=== PATIENT | female | born 1985 | race Caucasian/White ===

== ENCOUNTER → 2016-12-04 | Outpatient (CLI) | payer OTHER ==
--- NOTE | 2016-12-04 14:25 | XR ---
EXAMINATION TYPE: XR KUB DATE OF EXAM: 12/04/2016 11:34 AM COMPARISON: NONE HISTORY: 30-year-old female bilateral kidney stones and pain FINDINGS: Supine imaging limited for assessment of free air. There is mild overall stool burden. There is a 6 m m calcification seen in the left mid abdomen. Bilateral pelvic phleboliths are noted. IMPRESSION: 6 mm left-sided renal calculus. Phleboliths in the pelvis. A small distal ureteral calculus would be difficult to exclude particularly on the right. Correlate with patient's symptoms.
== END | disposition home or self-care (01) ==
LOC: RADXRMAIN 10:38
PROVIDERS: ATTEND Physician Assistant
DX: N20.0 Calculus of kidney (principal); I87.8 Other specified disorders of veins
CPT/HCPCS: 74000; 81025

== ENCOUNTER → 2016-12-13 | Outpatient (CLI) | payer OTHER ==
[2016-12-13 13:36] LABS: Follicle Stimulating Hormone 5.7 mIU/mL; Prolactin 12.4 ng/mL (3.0-18.6)
== END | disposition home or self-care (01) ==
LOC: LABWHC1 12:16
PROVIDERS: ATTEND Obstetrics & Gynecology
DX: N92.6 Irregular menstruation, unspecified (principal)
CPT/HCPCS: 36415; 82670; 83001; 83002; 84146; 84402

== ENCOUNTER → 2017-02-20 | Outpatient (CLI) | payer OTHER | END | disposition home or self-care (01) | LOC: LABWHC1 16:16 | PROVIDERS: ATTEND Obstetrics & Gynecology | DX: N91.2 Amenorrhea, unspecified (principal) | CPT/HCPCS: 36415; 84702 ==

== ENCOUNTER → 2017-03-12 | Outpatient (CLI) | payer OTHER ==
--- NOTE | 2017-03-12 12:39 | CT ---
EXAMINATION TYPE: CT abdomen pelvis wo con DATE OF EXAM: 03/12/2017 12:26 PM COMPARISON: Abdomen same date HISTORY: Right sided flank pain CT DLP: 1108 mGycm Automated exposure control for dose reduction was used. TECHNIQUE: Helical acquisition of images from the lung bases through the pelvis. FINDINGS: LUNG BASES: No significant abnormality is appreciated. AORTA: No significant abnormality is appreciated. LIVER/GB: Liver shows low attenuation likely due to fatty infiltration. The liver is enlarged. Gallbl adder is normal. PANCREAS: No significant abnormality is seen. SPLEEN: No significant abnormality is seen. ADRENALS: No significant abnormality is seen. KIDNEYS: Bilateral punctate calculi are present within the collecting systems which are nonobstructiv e. There are 4 on the right and 7 on the left all measuring only approximately 2 to 3 mm in size. Kid neys are morphologically normal given the limits of the noncontrast exam. There is no evident uretera l calculus. REPRODUCTIVE ORGANS: No significant abnormality is seen. URINARY BLADDER: No significant abnormality is seen. BOWEL: Metallic densities present at the level of the cecum may be indicative of post appendectomy c hange, no secondary signs of appendicitis FREE AIR: No Free Air is visible. ASCITES: None visible. PELVIC ADENOPATHY: None visualized. Small umbilical hernia contains fat. OSSEOUS STRUCTURES: Degenerative disc disease present, loss of disc height L5-S1. IMPRESSION: BILATERAL NONOBSTRUCTIVE NEPHROLITHIASIS. HEPATOMEGALY, PROBABLE FATTY INFILTRATION OF THE LIVER. COR RELATE FOR POST APPENDECTOMY CHANGE. ADDITIONAL FINDINGS ABOVE.
== END | disposition home or self-care (01) ==
LOC: RADCTMAIN 12:09
PROVIDERS: ATTEND Urology
DX: N20.0 Calculus of kidney (principal); R16.0 Hepatomegaly, not elsewhere classified
CPT/HCPCS: 74176

== ENCOUNTER → 2017-03-12 | Outpatient (CLI) | payer OTHER ==
--- NOTE | 2017-03-12 11:08 | XR ---
EXAMINATION TYPE: XR KUB DATE OF EXAM: 03/12/2017 10:59 AM HISTORY: Pain Comparison: 12/04/2016 Single KUB is submitted for interpretation. Findings: Right renal calculi: None Visualized. Right ureteral calculi: None Visualized. Left renal calculi: Previously noted left renal calculus is not well visualized at this time. Left ureteral calculi: None Visualized. Pelvic calcifications: Stable pelvic phleboliths noted. Bowel gas pattern is unremarkable. No free air. No mass effects. IMPRESSION: 1. Previously noted left renal calculus is not well visualized at this time.
== END | disposition home or self-care (01) ==
LOC: RADXRMAIN 10:27
PROVIDERS: ATTEND Urology
DX: N20.0 Calculus of kidney (principal)
CPT/HCPCS: 74000; 74176

== ENCOUNTER → 2017-05-21 | Outpatient (CLI) | payer OTHER | END | disposition home or self-care (01) | LOC: LABWHC1 13:34 | PROVIDERS: ATTEND Internal Medicine Endocrinology, Diabetes & Metabolism | DX: Z53.9 Procedure and treatment not carried out, unspecified reason (principal) ==

== ENCOUNTER 2017-06-12 16:06 | Emergency (ER) | payer OTHER ==
[2017-06-12 16:33] VITALS: PULSE 84; TEMP 98
[2017-06-12 17:20] LABS: Basophils # (A) 0.1 k/uL (0-0.2); Basophils % (A) 1 %; CH 28.8; CHCM 33.3; Eosinophils # (A) 0.4 k/uL (0-0.7); Eosinophils % (A) 3 %; HCT 42.4 % (34.0-46.0); HGB 14.4 gm/dL (11.4-16.0); Luc # (Auto) 0.24; Luc % (Auto) 2; Lymphocytes # (A) 3.3 k/uL (1.0-4.8); Lymphocytes % (A) 23 %; MCH 29.5 pg (25.0-35.0); MCHC 33.9 g/dL (31.0-37.0); Mean Platelet Volume 8.1; Monocytes # (A) 0.6 k/uL (0-1.0); Monocytes % (A) 4 %; Neutrophils # (A) 9.7 k/uL (1.3-7.7); Neutrophils % (A) 68 %; RBC 4.88 m/uL (3.80-5.40); RDW 13.7 % (11.5-15.5); WBC 14.2 k/uL (3.8-10.6); WBC (Perox) 14.08
[2017-06-12 17:21] LABS: Appearance,Urine Clear (Clear); Bilirubin,Urine Negative (Negative); Glucose,Urine (UA) Negative (Negative); Ketones,Urine Negative (Negative); Leukocyte Esterase,Urine Negative (Negative); Nitrite,Urine Negative (Negative); Protein,Urine Negative (Negative); Specific Gravity,Urine 1.016 (1.001-1.035); UA Billing (MACRO vs. MICRO) CHEM; Urobilinogen,Urine <2.0 mg/dL (<2.0)
--- NOTE | 2017-06-12 17:28 | ED ---
Abdominal Pain HPI - General Chief Complaint: Abdominal Pain Stated Complaint: Abd Pain- Time Seen by Provider: 06/12/17 16:35 Source: patient, RN notes reviewed Mode of arrival: ambulatory Limitations: no limitations - History of Present Illness Initial Comments: This a 31-year-old female presents emergency Department chief complaint abdominal pain. Patient is concerned that she recently she is . Patient is A0. Patient states that her [employer] is Dr. Blas. Patient has no vaginal bleeding or vaginal discharge. She complains of lower abdominal cramping. Denies any flank pain no dysuria no hematuria. Patient states that the pain made her concerned and brought her to emergency department. - Related Data Home Medications Medication Instructions Recorded Confirmed Levothyroxine Sodium [Synthroid] 112 mcg PO DAILY 06/12/17 06/12/17 Plexus Otc 1 dose PO DAILY 06/12/17 06/12/17 Allergies Allergy/AdvReac Type Severity Reaction Status Date / Time Penicillins Allergy Severe Swelling Verified 06/12/17 16:51 corn [[place]] Allergy Mild Itching Verified 06/12/17 16:51 peanut Allergy Mild Itching Verified 06/12/17 16:51 soybean Allergy Mild Itching Verified 06/12/17 16:51 walnut Allergy Itching Verified 06/12/17 16:51 Review of Systems ROS Statement: Those systems with pertinent positive or pertinent negative responses have been documented in the HPI. ROS Other: All systems not noted in ROS Statement are negative. Past Medical History Past Medical History: Thyroid Disorder Additional Past Medical History / Comment(s): kidney stones in past History of Any Multi-Drug Resistant Organisms: None Reported Past Surgical History: Appendectomy, Tonsillectomy Additional Past Surgical History / Comment(s): exploratory laparotomy of ovary Past Anesthesia/Blood Transfusion Reactions: No Reported Reaction Past Psychological History: Anxiety Smoking Status: Former smoker Past Alcohol Use History: None Reported Past Drug Use History: None Reported - Past Family History Mother Family Medical History: No Reported History General Exam Limitations: no limitations General appearance: alert, in no apparent distress Respiratory exam: Present: normal lung sounds bilaterally. Absent: respiratory distress, wheezes, rales, rhonchi, stridor Cardiovascular Exam: Present: regular rate, normal rhythm, normal heart sounds. Absent: systolic murmur, diastolic murmur, rubs, gallop, clicks GI/Abdominal exam: Present: soft, normal bowel sounds. Absent: distended, tenderness, guarding, rebound, rigid Back exam: Absent: CVA tenderness (R), CVA tenderness (L) Skin exam: Present: warm, dry, intact, normal color. Absent: rash Course Vital Signs 06/12/17 16:31 Temperature 98.0 F Pulse Rate 84 Respiratory 18 Rate Blood Pressure 156/74 O2 Sat by Pulse 98 Oximetry Medical Decision Making - Medical Decision Making 31-year-old female presented emergency from for abdominal pain . Patient has early with hCG of 96. Patient has no vaginal bleeding ultrasound does not show any abnormality at this time. Patient has early will follow for further care. - Lab Data Result diagrams: 06/12/17 17:05 06/12/17 17:05 Lab Results 06/12/17 06/12/17 06/12/17 Range/Units 17:05 17:05 17:05 WBC 14.2 H (3.8-10.6) k/uL RBC 4.88 (3.80-5.40) m/uL Hgb 14.4 (11.4-16.0) gm/dL Hct 42.4 (34.0-46.0) % MCV 87.0 (80.0-100.0) fL MCH 29.5 (25.0-35.0) pg MCHC 33.9 (31.0-37.0) g/dL RDW 13.7 (11.5-15.5) % Plt Count 247 (150-450) k/uL Neutrophils % 68 % Lymphocytes % 23 % Monocytes % 4 % Eosinophils % 3 % Basophils % 1 % Neutrophils # 9.7 H (1.3-7.7) k/uL Lymphocytes # 3.3 (1.0-4.8) k/uL Monocytes # 0.6 (0-1.0) k/uL Eosinophils # 0.4 (0-0.7) k/uL Basophils # 0.1 (0-0.2) k/uL Sodium 137 (137-145) mmol/L Potassium 4.2 (3.5-5.1) mmol/L Chloride 105 (98-107) mmol/L Carbon Dioxide 24 (22-30) mmol/L Anion Gap 8 mmol/L BUN 15 (7-17) mg/dL Creatinine 0.73 (0.52-1.04) mg/dL Est GFR (MDRD) Af Amer >60 (>60 ml/min/1.73 sqM) Est GFR (MDRD) Non-Af >60 (>60 ml/min/1.73 sqM) Glucose 75 (74-99) mg/dL Calcium 9.3 (8.4-10.2) mg/dL HCG, Quant 96.9 mIU/mL Urine Color Urine Appearance (Clear) Urine pH (5.0-8.0) Ur Specific [place] (1.001-1.035) Urine Protein (Negative) Urine Glucose (UA) (Negative) Urine Ketones (Negative) Urine Blood (Negative) Urine Nitrite (Negative) Urine Bilirubin (Negative) Urine Urobilinogen (<2.0) mg/dL Ur Leukocyte Esterase (Negative) Blood Type B Positive Blood Type Recheck No 06/12/17 Range/Units 17:05 WBC (3.8-10.6) k/uL RBC (3.80-5.40) m/uL Hgb (11.4-16.0) gm/dL Hct (34.0-46.0) % MCV (80.0-100.0) fL MCH (25.0-35.0) pg MCHC (31.0-37.0) g/dL RDW (11.5-15.5) % Plt Count (150-450) k/uL Neutrophils % % Lymphocytes % % Monocytes % % Eosinophils % % Basophils % % Neutrophils # (1.3-7.7) k/uL Lymphocytes # (1.0-4.8) k/uL Monocytes # (0-1.0) k/uL Eosinophils # (0-0.7) k/uL Basophils # (0-0.2) k/uL Sodium (137-145) mmol/L Potassium (3.5-5.1) mmol/L Chloride (98-107) mmol/L Carbon Dioxide (22-30) mmol/L Anion Gap mmol/L BUN (7-17) mg/dL Creatinine (0.52-1.04) mg/dL Est GFR (MDRD) Af Amer (>60 ml/min/1.73 sqM) Est GFR (MDRD) Non-Af (>60 ml/min/1.73 sqM) Glucose (74-99) mg/dL Calcium (8.4-10.2) mg/dL HCG, Quant mIU/mL Urine Color Yellow Urine Appearance Clear (Clear) Urine pH 5.0 (5.0-8.0) Ur Specific [place] 1.016 (1.001-1.035) Urine Protein Negative (Negative) Urine Glucose (UA) Negative (Negative) Urine Ketones Negative (Negative) Urine Blood Negative (Negative) Urine Nitrite Negative (Negative) Urine Bilirubin Negative (Negative) Urine Urobilinogen <2.0 (<2.0) mg/dL Ur Leukocyte Esterase Negative (Negative) Blood Type Blood Type Recheck Disposition Clinical Impression: Disposition: HOME SELF-CARE Condition: Stable Instructions: (ED) Additional Instructions: Please return to the Emergency Department if symptoms worsen or any other concerns. Referrals: None,Stated [Primary Care Provider] - 1-2 days Time of Disposition: 19:00
[2017-06-12 17:29] LABS: Anion Gap 8 mmol/L; Blood Urea Nitrogen 15 mg/dL (7-17); Calcium 9.3 mg/dL (8.4-10.2); Carbon Dioxide 24 mmol/L (22-30); Chloride 105 mmol/L (98-107); Glucose 75 mg/dL (74-99); Non-African American GFR(MDRD) >60 (>60 ml/min/1.73 sqM); Potassium 4.2 mmol/L (3.5-5.1); Sodium 137 mmol/L (137-145)
[2017-06-12 17:46] LABS: HCG,Quantitative Serum 96.9 mIU/mL
--- NOTE | 2017-06-12 18:47 | US ---
EXAMINATION TYPE: US OB transvag DATE OF EXAM: 06/12/2017 COMPARISON: NONE CLINICAL HISTORY: Pain. No beta hCG available at the time of interpretation. EXAM PERFORMED: Transvaginal (TV) EXAM MEASUREMENTS: GESTATIONAL AGE / DATING Physician Established: Not established Dates by LMP: Unknown Dates by First Scan: This is first scan MATERNAL ANATOMY Uterus: 7.1 x 4.2 x 5.3 cm Right Ovary: 2.2 x 1.4 x 2.0 cm Left Ovary: 2.3 x 1.0 x 1.8 cm Post CDS / Adnexa: wnl Presence of free fluid: no Presence of corpus luteal cyst: no Endometrium: 1.5 cm. GESTATION / SURVEY Date of LMP: Unknown Beta HcG (if available): Not available IUP not visualized at this time. Uterus heterogenous hypoechoic areas seen largest measuring 1.0 x 0.9 x 1.0 cm. Likely representing intramural leiomyomas Hypoechoic area seen left ovary measuring 1.7 x 1.4 x 1.4cm. Most likely representing a complex dominant follicle, possibly a corpus luteal cyst IMPRESSION: Thickened endometrium with no current evidence of intrauterine . Correlation with repeat short-term serial serum beta hCGs and pelvic ultrasound in 5-7 days is recommended. Differential of this time includes early , spontaneous , and ectopic . MTDD
[2017-06-12 19:15] VITALS: BP 112/64; RESP 16
== END 2017-06-12 19:25 | disposition home or self-care (01) ==
LOC: EC 16:06
DX: O99.89 Other specified diseases and conditions complicating pregnancy, childbirth and the puerperium (principal); R10.9 Unspecified abdominal pain; O99.280 Endocrine, nutritional and metabolic diseases complicating pregnancy, unspecified trimester; E07.9 Disorder of thyroid, unspecified; Z3A.00 Weeks of gestation of pregnancy not specified; Z79.899 Other long term (current) drug therapy; Z88.0 Allergy status to penicillin; Z91.010 Allergy to peanuts; Z91.018 Allergy to other foods
CPT/HCPCS: 36415; 76801; 76817; 80048; 81003; 84702; 85025; 86900; 86901; 99284

== ENCOUNTER → 2017-06-22 | Outpatient (CLI) | payer OTHER | END | disposition home or self-care (01) | LOC: LABWHC1 11:03 | PROVIDERS: ATTEND Obstetrics & Gynecology | DX: Z34.80 Encounter for supervision of other normal pregnancy, unspecified trimester (principal); Z3A.00 Weeks of gestation of pregnancy not specified | CPT/HCPCS: 36415; 84702 ==

== ENCOUNTER → 2017-07-02 | Outpatient (CLI) | payer OTHER | END | disposition home or self-care (01) | LOC: LABWHC1 16:36 | PROVIDERS: ATTEND Obstetrics & Gynecology | DX: O03.9 Complete or unspecified spontaneous abortion without complication (principal) | CPT/HCPCS: 36415; 84702 ==

== ENCOUNTER → 2017-07-25 | Outpatient (CLI) | payer OTHER ==
[2017-07-25 11:48] LABS: CH 28.5; CHCM 32.8; HCT 42.7 % (34.0-46.0); HDW 2.26; HGB 14.3 gm/dL (11.4-16.0); MCH 29.4 pg (25.0-35.0); MCHC 33.6 g/dL (31.0-37.0); MCV 87.5 fL (80.0-100.0); RBC 4.87 m/uL (3.80-5.40); RDW 13.2 % (11.5-15.5); WBC 10.9 k/uL (3.8-10.6)
[2017-07-25 12:14] LABS: ALT 44 U/L (9-52); AST 24 U/L (14-36); Alkaline Phosphatase 87 U/L (38-126); Anion Gap 11 mmol/L; Blood Urea Nitrogen 15 mg/dL (7-17); C Reactive Protein 6.1 mg/L (<10.0); Calcium 9.4 mg/dL (8.4-10.2); Carbon Dioxide 26 mmol/L (22-30); Chloride 103 mmol/L (98-107); Cholesterol 231 mg/dL (<200); Glucose 86 mg/dL (74-99); HDL Cholesterol 53 mg/dL (40-60); Magnesium 1.9 mg/dL (1.6-2.3); Non-African American GFR(MDRD) >60 (>60 ml/min/1.73 sqM); Potassium 4.7 mmol/L (3.5-5.1); Sodium 140 mmol/L (137-145); Total Bilirubin 0.2 mg/dL (0.2-1.3); Total Protein 7.3 g/dL (6.3-8.2)
[2017-07-25 12:15] LABS: Rheumatoid Factor, Qnt <9 IU/mL (<12)
[2017-07-25 18:14] LABS: ANA w/Reflex to Titer NEGATIVE (NEGATIVE); Cyclic Citrull Pep IgG Unit <0.5 U/mL; Cyclic Citrullinated Pep IgG NEGATIVE (NEGATIVE)
== END | disposition home or self-care (01) ==
LOC: LABWHC1 10:56
PROVIDERS: ATTEND Family Medicine
DX: M25.569 Pain in unspecified knee (principal); E66.9 Obesity, unspecified; Z68.35 Body mass index [BMI] 35.0-35.9, adult
CPT/HCPCS: 36415; 80053; 80061; 82306; 83735; 85027; 86038; 86140; 86200; 86431

== ENCOUNTER → 2018-06-11 | Outpatient (CLI) | payer OTHER ==
[2018-06-11 13:57] LABS: T4, Free (Free Thyroxine) 0.9 ng/dL (0.78-2.19)
== END | disposition home or self-care (01) ==
LOC: LABWHC1 12:37
PROVIDERS: ATTEND Internal Medicine Endocrinology, Diabetes & Metabolism
DX: E03.8 Other specified hypothyroidism (principal); E55.9 Vitamin D deficiency, unspecified
CPT/HCPCS: 36415; 82306; 84439; 84443

== ENCOUNTER 2018-08-31 08:51 | Emergency (ER) | payer OTHER ==
[2018-08-31 08:58] VITALS: RESP 18; TEMP 97.8
[2018-08-31] MEDS ORDERED: SODIUM CHLORIDE 0.9% 1,000 ML IV STA (09:14)
[2018-08-31] MEDS ORDERED: MORPHINE SULFATE 4 MG/ML SYRINGE IV STA (09:14)
[2018-08-31] MEDS ORDERED: KETOROLAC 30 MG/ML 1 ML VIAL IVP STA (09:14)
--- NOTE | 2018-08-31 09:17 | ED ---
Abdominal Pain HPI - General Chief Complaint: Abdominal Pain Stated Complaint: Kidney pain/vomiting Time Seen by Provider: 08/31/18 09:02 Source: patient, RN notes reviewed, old records reviewed Mode of arrival: ambulatory Limitations: no limitations - History of Present Illness Initial Comments: Patient is a 32-year-old female presents emergency department today with chief complaint of onset of right-sided flank pain this morning. She said history of kidney stones in the past and her pain feels similar to her previous kidney stones. Patient reports the pain him to start with dysuria this morning. Been progressively up to the right flank. Patient has had episodes of dry heaving. Patient reports she also had a recent right foot surgery, and was placed on Bactrim yesterday by her orthopedic surgeon. Patient his taken a few doses of the antibiotic at this time. She relates no fevers or chills. She states that she feels generally ill and the pain comes in waves. - Related Data Home Medications Medication Instructions Recorded Confirmed Levothyroxine Sodium [Synthroid] 112 mcg PO DAILY 06/12/17 06/12/17 Plexus Otc 1 dose PO DAILY 06/12/17 06/12/17 Previous Rx's Medication Instructions Recorded HYDROcodone/APAP 5-325MG [[place] 1 tab PO Q6HR PRN #10 tab 08/31/18 5-325] Ketorolac [Toradol] 10 mg PO TID #20 tab 08/31/18 Ondansetron Odt [Zofran Odt] 4 mg PO Q8HR PRN #20 tab 08/31/18 Tamsulosin [Flomax] 0.4 mg PO DAILY #7 cap 08/31/18 Allergies Allergy/AdvReac Type Severity Reaction Status Date / Time Penicillins Allergy Severe Swelling Verified 08/31/18 08:54 corn [[place]] Allergy Mild Itching Verified 08/31/18 08:54 peanut Allergy Mild Itching Verified 08/31/18 08:54 soybean Allergy Mild Itching Verified 08/31/18 08:54 walnut Allergy Itching Verified 08/31/18 08:54 Review of Systems ROS Statement: Those systems with pertinent positive or pertinent negative responses have been documented in the HPI. ROS Other: All systems not noted in ROS Statement are negative. Past Medical History Past Medical History: Thyroid Disorder Additional Past Medical History / Comment(s): kidney stones in past History of Any Multi-Drug Resistant Organisms: None Reported Past Surgical History: Appendectomy, Section, Tonsillectomy Additional Past Surgical History / Comment(s): exploratory laparotomy of ovary, release of plantar facitis Past Anesthesia/Blood Transfusion Reactions: No Reported Reaction Past Psychological History: No Psychological Hx Reported Smoking Status: Current every day smoker Past Alcohol Use History: None Reported Past Drug Use History: Marijuana - Past Family History Mother Family Medical History: No Reported History General Exam - General Exam Comments Initial Comments: This is a 32-year-old female. Alert and oriented. Patient appears in moderate acute discomfort. Limitations: no limitations General appearance: alert, in no apparent distress Head exam: Present: atraumatic, normocephalic, normal inspection Eye exam: Present: normal appearance, PERRL, EOMI. Absent: scleral icterus, conjunctival injection, periorbital swelling ENT exam: Present: normal exam, normal oropharynx, mucous membranes moist Neck exam: Present: normal inspection. Absent: tenderness, meningismus, lymphadenopathy Respiratory exam: Present: normal lung sounds bilaterally. Absent: respiratory distress, wheezes, rales, rhonchi, stridor Cardiovascular Exam: Present: regular rate, normal rhythm, normal heart sounds. Absent: systolic murmur, diastolic murmur, rubs, gallop, clicks GI/Abdominal exam: Present: soft, normal bowel sounds. Absent: distended, tenderness, guarding, rebound, rigid Extremities exam: Present: normal inspection, full ROM, normal capillary refill. Absent: tenderness, pedal edema, joint swelling, calf tenderness Back exam: Present: normal inspection Neurological exam: Present: alert, oriented X3, CN II-XII intact Psychiatric exam: Present: normal affect, normal mood Course Vital Signs 08/31/18 08:54 Temperature 97.8 F Pulse Rate 83 Respiratory 18 Rate Blood Pressure 147/92 O2 Sat by Pulse 99 Oximetry Medical Decision Making - Medical Decision Making 32-year-old female presents referred in today with chief complaint of onset of right-sided flank pain. Patient appears to be in distress upon emergency department arrival. Concern for passing kidney stone. Said kidney since the past. Patient's laboratory was reviewed and unremarkable. She did recently start Bactrim for a right foot infection postsurgical. This wound site appears well. No signs of redness or drainage. Patient has some right CVA tenderness. Was given IV fluids and pain medication. She was revived afterwards and said the pain is resolved. CT without contrast was completed. There is evidence of right-sided hydronephrosis likely old recently passed stone. Evidence of multiple stones within the gallbladder on my visualization of the CT. At this time Patient will be discharged with Flomax. Medication and Toradol and nausea medication. Discussed that she would continue her Bactrim already with the infection of the foot. Patient agrees to treatment plan will comply. Return parameters were discussed. - Lab Data Result diagrams: 08/31/18 09:47 08/31/18 09:47 Lab Results 08/31/18 08/31/18 08/31/18 Range/Units 09:47 09:47 09:47 WBC 10.8 H (3.8-10.6) k/uL RBC 5.14 (3.80-5.40) m/uL Hgb 14.8 (11.4-16.0) gm/dL Hct 44.8 (34.0-46.0) % MCV 87.2 (80.0-100.0) fL MCH 28.7 (25.0-35.0) pg MCHC 32.9 (31.0-37.0) g/dL RDW 13.5 (11.5-15.5) % Plt Count 255 (150-450) k/uL Neutrophils % 69 % Lymphocytes % 20 % Monocytes % 6 % Eosinophils % 3 % Basophils % 1 % Neutrophils # 7.5 (1.3-7.7) k/uL Lymphocytes # 2.2 (1.0-4.8) k/uL Monocytes # 0.6 (0-1.0) k/uL Eosinophils # 0.4 (0-0.7) k/uL Basophils # 0.1 (0-0.2) k/uL Sodium 141 (137-145) mmol/L Potassium 4.5 (3.5-5.1) mmol/L Chloride 107 (98-107) mmol/L Carbon Dioxide 23 (22-30) mmol/L Anion Gap 11 mmol/L BUN 20 H (7-17) mg/dL Creatinine 0.93 (0.52-1.04) mg/dL Est GFR (CKD-EPI)AfAm >90 (>60 ml/min/1.73 sqM) Est GFR (CKD-EPI)NonAf 82 (>60 ml/min/1.73 sqM) Glucose 94 (74-99) mg/dL Calcium 10.3 H (8.4-10.2) mg/dL Total Bilirubin 0.4 (0.2-1.3) mg/dL AST 20 (14-36) U/L ALT 24 (9-52) U/L Alkaline Phosphatase 111 (38-126) U/L Total Protein 8.2 (6.3-8.2) g/dL Albumin 4.6 (3.5-5.0) g/dL Amylase 54 (30-110) U/L Lipase 125 (23-300) U/L Urine Color Yellow Urine Appearance Clear (Clear) Urine pH 6.0 (5.0-8.0) Ur Specific [place] 1.022 (1.001-1.035) Urine Protein Trace H (Negative) Urine Glucose (UA) Negative (Negative) Urine Ketones Negative (Negative) Urine Blood Large H (Negative) Urine Nitrite Negative (Negative) Urine Bilirubin Negative (Negative) Urine Urobilinogen <2.0 (<2.0) mg/dL Ur Leukocyte Esterase Negative (Negative) Urine RBC >182 H (0-5) /hpf Urine WBC 2 (0-5) /hpf Ur Squamous Epith Cells 2 (0-4) /hpf Urine Bacteria Rare H (None) /hpf Urine Mucus Occasional H (None) /hpf Urine HCG, Qual (Not Detectd) 08/31/18 Range/Units 09:47 WBC (3.8-10.6) k/uL RBC (3.80-5.40) m/uL Hgb (11.4-16.0) gm/dL Hct (34.0-46.0) % MCV (80.0-100.0) fL MCH (25.0-35.0) pg MCHC (31.0-37.0) g/dL RDW (11.5-15.5) % Plt Count (150-450) k/uL Neutrophils % % Lymphocytes % % Monocytes % % Eosinophils % % Basophils % % Neutrophils # (1.3-7.7) k/uL Lymphocytes # (1.0-4.8) k/uL Monocytes # (0-1.0) k/uL Eosinophils # (0-0.7) k/uL Basophils # (0-0.2) k/uL Sodium (137-145) mmol/L Potassium (3.5-5.1) mmol/L Chloride (98-107) mmol/L Carbon Dioxide (22-30) mmol/L Anion Gap mmol/L BUN (7-17) mg/dL Creatinine (0.52-1.04) mg/dL Est GFR (CKD-EPI)AfAm (>60 ml/min/1.73 sqM) Est GFR (CKD-EPI)NonAf (>60 ml/min/1.73 sqM) Glucose (74-99) mg/dL Calcium (8.4-10.2) mg/dL Total Bilirubin (0.2-1.3) mg/dL AST (14-36) U/L ALT (9-52) U/L Alkaline Phosphatase (38-126) U/L Total Protein (6.3-8.2) g/dL Albumin (3.5-5.0) g/dL Amylase (30-110) U/L Lipase (23-300) U/L Urine Color Urine Appearance (Clear) Urine pH (5.0-8.0) Ur Specific [place] (1.001-1.035) Urine Protein (Negative) Urine Glucose (UA) (Negative) Urine Ketones (Negative) Urine Blood (Negative) Urine Nitrite (Negative) Urine Bilirubin (Negative) Urine Urobilinogen (<2.0) mg/dL Ur Leukocyte Esterase (Negative) Urine RBC (0-5) /hpf Urine WBC (0-5) /hpf Ur Squamous Epith Cells (0-4) /hpf Urine Bacteria (None) /hpf Urine Mucus (None) /hpf Urine HCG, Qual Not Detected (Not Detectd) - Radiology Data Radiology results: report reviewed Bilateral nonobstructing nephrolithiasis. Mild right-sided hydronephrosis without definite acute ureteral calculus. This may be secondary to a recently passed stone. Hepatomegaly. Colonic thickening correlate to exclude colitis. There is an umbilical hernia with fat with a 7.2 mm mouth. Disposition Clinical Impression: Ureteral calculus, right Disposition: HOME SELF-CARE Condition: Good Instructions: Ureteral Stones (ED) Additional Instructions: Patient advised to follow-up with primary care provider. Return to the emergency department if any alarming signs or symptoms occur. Take the medication as prescribed. Remain hydrated. Continue her antibiotic as previously prescribed. Prescriptions: HYDROcodone/APAP 5-325MG [[place] 5-325] 1 tab PO Q6HR PRN #10 tab PRN Reason: Pain Ketorolac [Toradol] 10 mg PO TID #20 tab Ondansetron Odt [Zofran Odt] 4 mg PO Q8HR PRN #20 tab PRN Reason: Nausea Tamsulosin [Flomax] 0.4 mg PO DAILY #7 cap Is patient prescribed a controlled substance at d/c from ED?: Yes When asked, does pt state using other controlled substances?: No If prescribed controlled substance>3 days was MAPS reviewed?: Yes If opioid is for acute pain is fill amount 7 days or less?: Yes If Rx opioid, was Start Talking consent form obtained?: Yes Referrals: Yoli Coyne MD [Primary Care Provider] - 1-2 days Taye Duran MD [STAFF PHYSICIAN] - 1-2 days Time of Disposition: 11:32
[2018-08-31] MEDS ORDERED: ONDANSETRON 4 MG/2 ML VIAL IVP STA (09:52)
[2018-08-31 10:08] LABS: Basophils # (A) 0.1 k/uL (0-0.2); Basophils % (A) 1 %; Eosinophils # (A) 0.4 k/uL (0-0.7); Eosinophils % (A) 3 %; HCT 44.8 % (34.0-46.0); HGB 14.8 gm/dL (11.4-16.0); Lymphocytes # (A) 2.2 k/uL (1.0-4.8); Lymphocytes % (A) 20 %; MCH 28.7 pg (25.0-35.0); MCHC 32.9 g/dL (31.0-37.0); MCV 87.2 fL (80.0-100.0); Mean Platelet Volume 8.1; Monocytes # (A) 0.6 k/uL (0-1.0); Monocytes % (A) 6 %; Neutrophils # (A) 7.5 k/uL (1.3-7.7); Neutrophils % (A) 69 %; Platelet Count 255 k/uL (150-450); RBC 5.14 m/uL (3.80-5.40); RDW 13.5 % (11.5-15.5); WBC 10.8 k/uL (3.8-10.6)
[2018-08-31 10:14] LABS: Appearance,Urine Clear (Clear); Bacteria,Urine Rare /hpf; Bilirubin,Urine Negative (Negative); Blood,Urine Large (Negative); Color,Urine Yellow; Glucose,Urine (UA) Negative (Negative); Ketones,Urine Negative (Negative); Leukocyte Esterase,Urine Negative (Negative); Mucus,Urine Occasional /hpf; Nitrite,Urine Negative (Negative); Protein,Urine Trace (Negative); RBC,Urine >182 /hpf (0-5); Specific Gravity,Urine 1.022 (1.001-1.035); Squamous Epithelial Cell,Urine 2 /hpf (0-4); Urobilinogen,Urine <2.0 mg/dL (<2.0); WBC,Urine 2 /hpf (0-5)
[2018-08-31 10:19] LABS: ALT 24 U/L (9-52); AST 20 U/L (14-36); Albumin 4.6 g/dL (3.5-5.0); Alkaline Phosphatase 111 U/L (38-126); Amylase 54 U/L (30-110); Anion Gap 11 mmol/L; Blood Urea Nitrogen 20 mg/dL (7-17); Calcium 10.3 mg/dL (8.4-10.2); Carbon Dioxide 23 mmol/L (22-30); Chloride 107 mmol/L (98-107); Glucose 94 mg/dL (74-99); Lipase 125 U/L (23-300); Potassium 4.5 mmol/L (3.5-5.1); Sodium 141 mmol/L (137-145); Total Bilirubin 0.4 mg/dL (0.2-1.3); Total Protein 8.2 g/dL (6.3-8.2)
--- NOTE | 2018-08-31 11:26 | CT ---
EXAMINATION TYPE: CT abdomen pelvis wo con DATE OF EXAM: 08/31/2018 COMPARISON: Previous study dated 03/12/2017 HISTORY: Abdominal pain, left side. History of renal stones CT DLP: 775.3 mGycm Automated exposure control for dose reduction was used. FINDINGS: Visualized portions of the lungs are clear. There is no pleural or pericardial fluid. The h eart is not enlarged. Within the abdomen, the liver is enlarged measuring 20 cm. The spleen and gallbladder are normal. Both adrenal glands are normal. There are bilateral nonobstructing calculi in the lower poles bilaterally. The largest on the right i s 3.1 mm. The largest on the left is in the upper pole anterior calyx and measures 2.7 mm. There are multiple smaller nonobstructing calculi. There is mild hydronephrosis on the right. There are multiple phleboliths within the pelvis bilateral ly. A definite ureteric calculus is not visualized. The calcifications appear unchanged from the prev ious study. Limited views of the pancreas are unremarkable. There is no significant retroperitoneal, iliac or inguinal adenopathy. The bladder is unremarkable. There is follicular change in the ovaries. The uterus is unremarkable. There is no significant diverticular change and there is no radiographic evidence of diverticulitis. The appendix is been removed. There is some thickening of the distal transverse and proximal descendi ng colons. Small bowel loops are normal. There is no free fluid and no free air. There is an umbilical hernia containing fat only with a 7.2 mm mouth. No bony lesion is seen. IMPRESSION: 1. BILATERAL NONOBSTRUCTING NEPHROLITHIASIS. 2. MILD RIGHT-SIDED HYDRONEPHROSIS WITHOUT DEFINITE URETERIC CALCULUS. THIS MAY BE SECONDARY TO A REC ENTLY PASSED STONE. 3. HEPATOMEGALY. 4. COLONIC THICKENING. PLEASE CORRELATE TO EXCLUDE COLITIS. 5. UMBILICAL HERNIA CONTAINING FAT ONLY WITH A 7.2 MM MOUTH.
[2018-08-31 11:35] VITALS: BP 117/80; PULSE 77
== END 2018-08-31 11:51 | disposition home or self-care (01) ==
LOC: EC 08:51
DX: N13.2 Hydronephrosis with renal and ureteral calculous obstruction (principal); K80.20 Calculus of gallbladder without cholecystitis without obstruction; E07.9 Disorder of thyroid, unspecified; F17.200 Nicotine dependence, unspecified, uncomplicated; Z90.49 Acquired absence of other specified parts of digestive tract; Z79.899 Other long term (current) drug therapy; Z88.0 Allergy status to penicillin; Z91.018 Allergy to other foods; Z91.010 Allergy to peanuts
CPT/HCPCS: 36415; 80053; 82150; 83690; 85025; 81001; 81025; 74176; 99284; 96374; 96375 ×2; 96361; J2270; J2405; J1885

== ENCOUNTER → 2019-05-30 | Outpatient (CLI) | payer OTHER ==
[2019-05-30 23:30] LABS: T4, Free (Free Thyroxine) 1.2 ng/dL (0.80-1.80)
== END | disposition home or self-care (01) ==
LOC: LABWHC1 16:01
PROVIDERS: ATTEND Internal Medicine Endocrinology, Diabetes & Metabolism
DX: E03.8 Other specified hypothyroidism (principal); E55.9 Vitamin D deficiency, unspecified
CPT/HCPCS: 36415; 82306; 84439; 84443

== ENCOUNTER → 2023-06-19 | Outpatient (CLI) | payer OTHER ==
[2023-06-19 15:27] LABS: % Iron Saturation 12.27 (12.00-45.00); ALT 23 U/L (8-44); AST 20 U/L (13-35); Albumin 4.5 d/dL (3.8-4.9); Albumin/Globulin Ratio 1.61 Ratio (1.60-3.17); Alkaline Phosphatase 93 U/L (41-126); BUN/Creat Ratio 16.38 Ratio (12.00-20.00); Blood Urea Nitrogen 13.1 mg/dL (9.0-27.0); Calcium 9.8 mg/dL (8.7-10.3); Carbon Dioxide 26.2 mmol/L (21.6-31.8); Chloride 105 mmol/L (96-109); Chol/HDL Ratio 5.14 Ratio; Estradiol 38.5 pg/mL; Globulin 2.8 d/dL (1.6-3.3); Glucose 84 mg/dL (70-110); Iron 46 UG/DL (50-170); LDL Cholesterol,Calculated 151.2 mg/dL (0.0-131.0); Potassium 4.8 mmol/L (3.5-5.5); Sodium 141 mmol/L (135-145); T4, Free (Free Thyroxine) 1.69 ng/dL (0.80-1.80); Total Bilirubin <0.2 mg/dL (0.3-1.2); Total Iron Binding Capacity 375 UG/DL (228-460); Total Protein 7.3 d/dL (6.2-8.2)
[2023-06-19 17:40] LABS: Follicle Stimulating Hormone 6.9 mIU/mL; Luteinizing Hormone 11.6 mIU/mL
[2023-06-19 19:36] LABS: Insulin Level 19.3 mIU/mL (3.0-25.0)
== END | disposition home or self-care (01) ==
LOC: LABWHC1 10:42
PROVIDERS: ATTEND Internal Medicine Endocrinology, Diabetes & Metabolism
DX: E03.1 Congenital hypothyroidism without goiter (principal); E55.9 Vitamin D deficiency, unspecified; N92.5 Other specified irregular menstruation; E21.2 Other hyperparathyroidism; E88.81 Metabolic syndrome and other insulin resistance; R53.83 Other fatigue
CPT/HCPCS: 36415; 80053; 80061; 82306; 82607; 82626; 82627; 82670; 82728; 83001; 83002; 83036; 83525; 83540; 83550; 83970; 84146; 84403; 84439; 84443; 84480

== ENCOUNTER 2023-08-07 17:34 | Emergency (ER) | payer OTHER ==
[2023-08-07 18:09] VITALS: RESP 18
--- NOTE | 2023-08-07 18:43 | ED ---
General Adult HPI - General Source: patient Mode of arrival: ambulatory Limitations: no limitations <Gisela Bernabe - Last Filed: 08/07/23 18:42> <Ninoska Gorman - Last Filed: 08/08/23 04:27> - General Chief complaint: Urogenital Stated complaint: Kidney stones - History of Present Illness Initial comments: Patient complains of flank pain nausea and urinary retention. Recently diagnosed with kidney stone. (Gisela Bernabe) 37-year-old female presenting with chief complaint of right-sided flank pain. Patient was seen here on 07/28 and was diagnosed with 4mm obstructing left sided kidney stone and bilateral nonobstructing stones. She has an appointment with urologist Dr. Moss tomorrow. However she states that today she began experiencing increasingly intense right-sided flank pain along with nausea, vomiting, and difficulty urinating. No fevers or chills. No dysuria. No chest pain or difficulty breathing. (Ninoska Gorman) - Related Data Home Medications Medication Instructions Recorded Confirmed Levothyroxine Sodium [Synthroid] 125 mcg PO DAILY 07/28/23 07/28/23 Previous Rx's Medication Instructions Recorded Ketorolac [Toradol] 10 mg PO Q6HR #12 tab 07/28/23 Ondansetron Odt [Zofran Odt] 4 mg PO Q8HR PRN #20 tab 07/28/23 Tamsulosin HCl [Flomax] 0.4 mg PO DAILY #7 capsule 07/28/23 oxyCODONE HCL/ACETAMINOPHEN 1 each PO Q6HR 3 Days #12 tab 07/28/23 [Percocet 5-325 mg Tablet] Allergies Allergy/AdvReac Type Severity Reaction Status Date / Time Penicillins Allergy Severe Swelling Verified 08/07/23 18:04 corn [[place]] Allergy Mild Itching Verified 08/07/23 18:04 peanut Allergy Mild Itching Verified 08/07/23 18:04 soybean Allergy Mild Itching Verified 08/07/23 18:04 walnut Allergy Itching Verified 08/07/23 18:04 Review of Systems ROS Other: All systems not noted in ROS Statement are negative. <Gisela Bernabe - Last Filed: 08/07/23 18:42> ROS Other: All systems not noted in ROS Statement are negative. <Ninoska Gorman - Last Filed: 08/08/23 04:27> ROS Statement: Those systems with pertinent positive or pertinent negative responses have been documented in the HPI. Past Medical History Past Medical History: Thyroid Disorder Additional Past Medical History / Comment(s): kidney stones in past History of Any Multi-Drug Resistant Organisms: None Reported Past Surgical History: Appendectomy, Section, Tonsillectomy Additional Past Surgical History / Comment(s): exploratory laparotomy of ovary, release of plantar facitis Past Anesthesia/Blood Transfusion Reactions: No Reported Reaction Past Psychological History: No Psychological Hx Reported Smoking Status: Never smoker Past Alcohol Use History: None Reported Past Drug Use History: Marijuana - Past Family History Mother Family Medical History: No Reported History <Gisela Bernabe - Last Filed: 08/07/23 18:42> General Exam Limitations: no limitations <Gisela Bernabe - Last Filed: 08/07/23 18:42> Limitations: no limitations General appearance: alert, in no apparent distress Head exam: Present: atraumatic, normocephalic, normal inspection Eye exam: Present: normal appearance, EOMI Neck exam: Present: normal inspection, full ROM Respiratory exam: Absent: respiratory distress GI/Abdominal exam: Present: soft. Absent: distended, tenderness, guarding, rebound, rigid Neurological exam: Present: alert, oriented X3 Psychiatric exam: Present: normal affect, normal mood Skin exam: Present: warm, dry, intact, normal color. Absent: rash <Ninoska Gorman - Last Filed: 08/08/23 04:27> - General Exam Comments Initial Comments: Visual Physical Exam Vital signs reviewed General: Well-appearing, nontoxic, no acute distress. Head: Normocephalic, atraumatic Eyes: PERRLA, EOMI ENT: Airway patent Chest: Nonlabored breathing Skin: No visual rash, normal skin tone Neuro: Alert and oriented 3 Musculoskeletal: No gross abnormalities (Gisela Bernabe) Course Vital Signs 08/07/23 08/07/23 18:00 22:49 Temperature 98.3 F 98.8 F Pulse Rate 74 88 Respiratory 18 18 Rate Blood Pressure 131/88 126/76 O2 Sat by Pulse 94 L 98 Oximetry Medical Decision Making <Gisela Bernabe - Last Filed: 08/07/23 18:42> - Lab Data Result diagrams: 08/07/23 20:00 08/07/23 19:58 <Ninoska Gorman - Last Filed: 08/08/23 04:27> - Medical Decision Making Quick note portion of this exam was completed by SANDI Conrad in triage. (Gisela Bernabe) Was pt. sent in by a medical professional or institution (, PA, CONFERENCE INTERPRETER, urgent care, hospital, or alf...) When possible be specific @ -No Did you speak to anyone other than the patient for history (EMS, parent, family, police, friend...)? What history was obtained from this source @ -No Did you review nursing and triage notes (agree or disagree)? Why? @ -I reviewed and agree with nursing and triage notes Were old charts reviewed (outside hosp., previous admission, EMS record, old EKG, old radiological studies, urgent care reports/EKG's, alf records)? Report findings @ -Recent ER visit including CT was reviewed Differential Diagnosis (chest pain, altered mental status, abdominal pain women, abdominal pain men, vaginal bleeding, weakness, fever, dyspnea, syncope, headache, dizziness, GI bleed, back pain, seizure, CVA, palpatations, mental he alth, musculoskeletal)? @ -MDM Differential Abdominal Pain Women: Appendicitis, Cholecystitis, diverticulosis, ischemic bowel, pancreatitis, hepatitis, UTI, gastroenteritis, AAA, incarcerated hernia, bowel obstruction, constipation, inflammatory bowel, hepatitis, peptic ulcer disease, splenic infarction, perforated viscus, vulvitis, ovarian torsion, PID, kidney stone, placenta abruption... This is not meant to be an all-inclusive list EKG interpreted by me (3pts min.). @ -As above X-rays interpreted by me (1pt min.). @ -KUB x-ray shows scattered gas in nondistended small bowel large bowel loops. Tiny bilateral renal calculi on recent CT last well seen on plain films. ALLERGIC calculus in the right renal pelvis on CT less well seen on plain films. No free air. Osseous structures intact. CT interpreted by me (1pt min.). @ -None done U/S interpreted by me (1pt. min.). @ -None done What testing was considered but not performed or refused? (CT, X-rays, U/S, labs)? Why? @ -None What meds were considered but not given or refused? Why? @ -None Did you discuss the management of the patient with other professionals (malcolm oakes i.e. , PA, CONFERENCE INTERPRETER, lab, RT, psych nurse, social science instructor, golf tournament consultant, teacher, crime prevention police officer, clinical case manager)? Give summary @ -No Was smoking cessation discussed for >3mins.? @ -No Was critical care preformed (if so, how long)? @ -No Were there social determinants of health that impacted care today? How? (Homelessness, low income, unemployed, alcoholism, drug addiction, transportati on, low edu. Level, literacy, decrease access to med. care, snf, rehab)? @ -No Was there de-escalation of care discussed even if they declined (Discuss DNR or withdrawal of care, Hospice)? DNR status @ -No What co-morbidities impacted this encounter? (DM, HTN, Smoking, COPD, CAD, Cancer, CVA, ARF, Chemo, Hep., AIDS, mental health diagnosis, sleep apnea, morbid obesity)? @ -None Was patient admitted / discharged? Hospital course, mention meds given and route, prescriptions, significant lab abnormalities, going to OR and other pertinent info. @ -37-year-old female presenting with chief complaint of right-sided flank pain that began worsening today. Patient was seen here recently and diagnosed with kidney stones, she has an appointment with Dr. moss tomorrow. She is given Toradol, Zofran, and IV fluids. WBC 15.6, likely reactive secondary to vomiting. Negative hCG. Urine shows large blood with 6 WBCs which are likely from contamination. No obstructing stones seen on KUB x-ray. However there is a larger stone which measured 9 mm on the patient's previous CT which remains in the right renal pelvis. On reassessment patient is resting comfortably and states that her symptoms have significantly improved. She'll be discharged home with pain medication. She states that she has Zofran at home to use if needed. She will follow up with Dr. Moss in the office tomorrow. Follow-up with PCP. Report back to ER with any new or worsening symptoms. Discussed return parameters and answered all questions. Patient conveyed verbal understanding and agreed to the plan. I discussed this case in detail with my attending Dr. Martell Undiagnosed new problem with uncertain prognosis? @ -No Drug Therapy requiring intensive monitoring for toxicity (Heparin, Nitro, Insulin, Cardizem)? @ -No Were any procedures done? @ -No Diagnosis/symptom? @ -Kidney stone Acute, or Chronic, or Acute on Chronic? @ -Acute Uncomplicated (without systemic symptoms) or Complicated (systemic symptoms)? @ -Uncomplicated Side effects of treatment? @ -No Exacerbation, Progression, or Severe Exacerbation? @ -No Poses a threat to life or bodily function? How? (Chest pain, [place], AR, pneumonia, PE, COPD, DKA, ARF, appy, cholecystitis, CVA, Diverticulitis, Homicidal, Suicidal, threat to staff... and all critical care pts) @ -No (Ninoska Gorman) - Lab Data Lab Results 08/07/23 08/07/23 08/07/23 Range/Units 18:00 19:58 20:00 WBC 15.6 H (3.8-10.6) k/uL RBC 5.28 (3.80-5.40) m/uL Hgb 15.4 (11.4-16.0) gm/dL Hct 47.1 H (34.0-46.0) % MCV 89.2 (80.0-100.0) fL MCH 29.2 (25.0-35.0) pg MCHC 32.7 (31.0-37.0) g/dL RDW 13.3 (11.5-15.5) % Plt Count 230 (150-450) k/uL MPV 9.2 Neutrophils % 81 % Lymphocytes % 13 % Monocytes % 4 % Eosinophils % 2 % Basophils % 0 % Neutrophils # 12.7 H (1.3-7.7) k/uL Lymphocytes # 2.0 (1.0-4.8) k/uL Monocytes # 0.6 (0-1.0) k/uL Eosinophils # 0.3 (0-0.7) k/uL Basophils # 0.0 (0-0.2) k/uL Sodium 138 (137-145) mmol/L Potassium 4.5 (3.5-5.1) mmol/L Chloride 104 (98-107) mmol/L Carbon Dioxide 22 (22-30) mmol/L Anion Gap 12 mmol/L BUN 18 H (7-17) mg/dL Creatinine 0.88 (0.52-1.04) mg/dL Est GFR (CKD-EPI)AfAm >90 (>60 ml/min/1.73 sqM) Est GFR (CKD-EPI)NonAf 85 (>60 ml/min/1.73 sqM) Glucose 98 (74-99) mg/dL Calcium 9.2 (8.4-10.2) mg/dL Total Bilirubin 0.7 (0.2-1.3) mg/dL AST 26 (14-36) U/L ALT 26 (4-34) U/L Alkaline Phosphatase 86 (38-126) U/L Total Protein 7.6 (6.3-8.2) g/dL Albumin 4.3 (3.5-5.0) g/dL HCG, Quant <2.4 mIU/mL Urine Color Light Red Urine Appearance Cloudy H (Clear) Urine pH 5.5 (5.0-8.0) Ur Specific [place] 1.018 (1.001-1.035) Urine Protein 1+ H (Negative) Urine Glucose (UA) Negative (Negative) Urine Ketones Trace H (Negative) Urine Blood Large H (Negative) Urine Nitrite Negative (Negative) Urine Bilirubin Negative (Negative) Urine Urobilinogen <2.0 (<2.0) mg/dL Ur Leukocyte Esterase Trace H (Negative) Urine RBC >182 H (0-5) /hpf Urine WBC 6 H (0-5) /hpf Ur Squamous Epith Cells 2 (0-4) /hpf Urine Bacteria Occasional H (None) /hpf Urine Mucus Moderate H (None) /hpf Disposition <Gisela Bernabe - Last Filed: 08/07/23 18:42> Is patient prescribed a controlled substance at d/c from ED?: No Time of Disposition: 21:45 <Ninoska Gorman - Last Filed: 08/08/23 04:27> Clinical Impression: Kidney stone Disposition: HOME SELF-CARE Condition: Good Instructions (If sedation given, give patient instructions): Kidney Stones (ED) Additional Instructions: Follow up with urology. Report back to ER with any new or worsening symptoms. Referrals: None,Stated [Primary Care Provider] - 1-2 days Simeon Moss MD [STAFF PHYSICIAN] - 08/08/23
[2023-08-07] MEDS ORDERED: ONDANSETRON 4 MG/2 ML VIAL IVP STA (19:55)
[2023-08-07] MEDS ORDERED: KETOROLAC 15 MG/ML 1 ML VIAL IVP STA (19:55)
[2023-08-07] MEDS ORDERED: SODIUM CHLORIDE 0.9% 1,000 ML IV ONE (19:55)
[2023-08-07 20:22] LABS: Basophils % (A) 0 %; Eosinophils # (A) 0.3 k/uL (0-0.7); Eosinophils % (A) 2 %; HCT 47.1 % (34.0-46.0); HGB 15.4 gm/dL (11.4-16.0); Lymphocytes % (A) 13 %; MCH 29.2 pg (25.0-35.0); MCHC 32.7 g/dL (31.0-37.0); MCV 89.2 fL (80.0-100.0); Mean Platelet Volume 9.2; Monocytes # (A) 0.6 k/uL (0-1.0); Monocytes % (A) 4 %; Neutrophils # (A) 12.7 k/uL (1.3-7.7); Neutrophils % (A) 81 %; Platelet Count 230 k/uL (150-450); RBC 5.28 m/uL (3.80-5.40); RDW 13.3 % (11.5-15.5); WBC 15.6 k/uL (3.8-10.6)
[2023-08-07 20:25] LABS: Appearance,Urine Cloudy (Clear); Bacteria,Urine Occasional /hpf; Bilirubin,Urine Negative (Negative); Blood,Urine Large (Negative); Color,Urine Light Red; Glucose,Urine (UA) Negative (Negative); Ketones,Urine Trace (Negative); Leukocyte Esterase,Urine Trace (Negative); Mucus,Urine Moderate /hpf; Nitrite,Urine Negative (Negative); PH, Urine 5.5 (5.0-8.0); Protein,Urine 1+ (Negative); RBC,Urine >182 /hpf (0-5); Specific Gravity,Urine 1.018 (1.001-1.035); Squamous Epithelial Cell,Urine 2 /hpf (0-4); Urobilinogen,Urine <2.0 mg/dL (<2.0); WBC,Urine 6 /hpf (0-5)
[2023-08-07 20:42] LABS: ALT 26 U/L (4-34); AST 26 U/L (14-36); African American GFR (CKD) >90 (>60 ml/min/1.73 sqM); Albumin 4.3 g/dL (3.5-5.0); Alkaline Phosphatase 86 U/L (38-126); Anion Gap 12 mmol/L; Blood Urea Nitrogen 18 mg/dL (7-17); Calcium 9.2 mg/dL (8.4-10.2); Carbon Dioxide 22 mmol/L (22-30); Chloride 104 mmol/L (98-107); Glucose 98 mg/dL (74-99); Non-African American GFR(CKD) 85 (>60 ml/min/1.73 sqM); Potassium 4.5 mmol/L (3.5-5.1); Sodium 138 mmol/L (137-145); Total Bilirubin 0.7 mg/dL (0.2-1.3); Total Protein 7.6 g/dL (6.3-8.2)
[2023-08-07 20:57] LABS: HCG,Quantitative Serum <2.4 mIU/mL
--- NOTE | 2023-08-07 21:04 | XR ---
EXAMINATION TYPE: XR KUB DATE OF EXAM: 08/07/2023 8:59 PM CLINICAL HISTORY: Right flank pain. TECHNIQUE: Two Upright KUB images of the abdomen are obtained. COMPARISON: CT abdomen and pelvis July 28, 2023 FINDINGS: Scattered gas is seen in non-distended small and large bowel loops. Tiny bilateral renal ca lculi on recent CT less well seen on plain films. Larger calculus in the right renal pelvis on CT les s well seen on plain films. No free air is seen. Osseous structures are intact. IMPRESSION: As above.
[2023-08-07] MEDS ORDERED: ACET/COD 300 MG/30 MG STARTER PACK 6 TAB BTL PO STA (22:43)
[2023-08-07 22:58] VITALS: BP 126/76; PULSE 88; TEMP 98.8
== END 2023-08-07 22:50 | disposition home or self-care (01) ==
LOC: EC 17:34
DX: N20.0 Calculus of kidney (principal); E07.9 Disorder of thyroid, unspecified; F12.90 Cannabis use, unspecified, uncomplicated; Z79.890 Hormone replacement therapy; Z88.0 Allergy status to penicillin; Z91.010 Allergy to peanuts; Z91.018 Allergy to other foods; Z90.49 Acquired absence of other specified parts of digestive tract
CPT/HCPCS: 36415; 80053; 85025; 81001; 84702; 74018; 99284; 96374; 96375; 96361; J2405; J1885

== ENCOUNTER 2023-08-10 08:38 | Day surgery (SDC) | payer OTHER ==
[2023-08-09 09:54] VITALS: BMI 34.7
--- NOTE | 2023-08-10 08:03 | P.GSHP ---
History of Present Illness H&P Date: 08/10/23 37 yo female with a history of stones presents with bilateral ureteral stones. She has had bilateral flank pain for 10 days. SHe has a 9 mm proximal ureteral stone on the right and a 4 mm distal stone on the left. SHe continues with pain. SHe comes for bilateral ureteroscopy with laser lithotripsy and possible stents. - Constitutional Constitutional: Denies chills, Denies fever - EENT Eyes: denies blurred vision, denies pain Ears, nose, mouth and throat: Denies headache, Denies sore throat - Cardiovascular Cardiovascular: Denies chest pain, Denies shortness of breath - Respiratory Respiratory: Denies cough, Denies 7 - Gastrointestinal Gastrointestinal: Denies abdominal pain, Denies diarrhea, Denies nausea, Denies vomiting - Genitourinary (Female) Genitourinary: Denies dysuria, Denies hematuria - Genitourinary (Male) Genitourinary: Denies dysuria, Denies hematuria - Musculoskeletal Musculoskeletal: Denies myalgias - Integumentary Integumentary: Denies pruritus, Denies rash - Neurological Neurological: Denies numbness, Denies weakness - Psychiatric Psychiatric: Denies anxiety, Denies depression - Endocrine Endocrine: Denies fatigue, Denies weight change Past Medical History Past Medical History: Thyroid Disorder Additional Past Medical History / Comment(s): kidney stones History of Any Multi-Drug Resistant Organisms: None Reported Past Surgical History: Appendectomy, Section, Tonsillectomy Additional Past Surgical History / Comment(s): exploratory laparotomy for removal of ovary, release of plantar fasciitis, lithotripsy Past Anesthesia/Blood Transfusion Reactions: No Reported Reaction Additional Past Anesthesia/Blood Transfusion Reaction / Comment(s): hard to wake up Past Psychological History: No Psychological Hx Reported Smoking Status: Current every day smoker Past Alcohol Use History: None Reported Additional Past Alcohol Use History / Comment(s): smokes 3-5 cigarettes/day Past Drug Use History: Marijuana Additional Drug Use History / Comment(s): instructed to have no marijuana within 24 hours of procedure - Past Family History Mother Family Medical History: No Reported History Medications and Allergies Home Medications Medication Instructions Recorded Confirmed Type Levothyroxine Sodium [Synthroid] 125 mcg PO DAILY 07/28/23 08/09/23 History Allergies Allergy/AdvReac Type Severity Reaction Status Date / Time Penicillins Allergy Severe Swelling Verified 08/09/23 09:30 corn [[place]] Allergy Mild Itching Verified 08/09/23 09:30 peanut Allergy Mild Itching Verified 08/09/23 09:30 soybean Allergy Mild Itching Verified 08/09/23 09:30 walnut Allergy Itching Verified 08/09/23 09:30 Surgical - Exam - General well developed, well nourished, no distress - Eyes normal ocular movement, no icteric - ENT no hearing loss, no congestion - Neck no masses, trachea midline - Respiratory normal respiratory effort, clear to auscultation - Abdomen Abdomen: soft, non tender, tender, no guarding, no rigid, no rebound - Integumentary no rash, no abnormal pigmentation - Neurologic no disoriented, no combative - Psychiatric oriented to time, oriented to person, oriented to place, speech is normal, memory intact Results - Imaging CT scan - abdomen: report reviewed, image reviewed CT scan - pelvis: report reviewed, image reviewed Assessment and Plan Assessment: Impression: bilateral ureteral stones with colic Plan: bilateral ureteroscopy with laser lithotripsy
[~2023-08-10 08:38] MED LIST: AMPICILLIN 1,000 MG in SODIUM CHLORIDE 0.9% 50 ML IVPB PRN; GENTAMICIN 120 MG in SODIUM CHLORIDE 0.9% 100 ML IVPB PRN; Pre Op ABX Message 1 EACH MISC MISCELLANE ONE
--- NOTE | 2023-08-10 09:04 | XR ---
EXAMINATION TYPE: XR KUB DATE OF EXAM: 08/10/2023 HISTORY: Pain Comparison: 08/07/[address] abdomen pelvis 07/28/2023 KUB is submitted for interpretation. Findings: Right renal calculi: Renal calculi seen on recent CT are poorly visualized. Right ureteral calculi: None Visualized. Left renal calculi: Small renal calculi seen on CT are poorly visualized. Left ureteral calculi: 4.2 mm calculus at the left L2-3 level noted. Pelvic calcifications: None Visualized. Bowel gas pattern is unremarkable. No free air. No mass effects. IMPRESSION: 1. Left ureteral 4.2 mm calculus at the left L2-3 level noted. 2. Previously noted renal calculi on CT are poorly visualized on this examination.
[2023-08-10] MEDS ORDERED: LACTATED RINGERS 1,000 ML IV ONE (09:13)
[2023-08-10] MEDS ORDERED: ONDANSETRON 4 MG/2 ML VIAL ONE ×2 (09:17→12:47)
[2023-08-10 09:18] VITALS: TEMP 97.8
[2023-08-10] MEDS ORDERED: ONDANSETRON 4 MG/2 ML VIAL IVP ONE ×2 (09:18→12:49)
[2023-08-10] MEDS ORDERED: DEXAMETHASONE SOD PHOSPHATE 4 MG/ML 1 ML VIAL IVP ONE (09:55)
[2023-08-10] MEDS ORDERED: SCOPOLAMINE 1 MG/72 HR PATCH TRANSDERM ONE (09:55)
[2023-08-10] MEDS ORDERED: MIDAZOLAM 2 MG/2 ML VIAL IVP ONE (10:58)
[2023-08-10] MEDS ORDERED: LIDOCAINE 1% INJ 10MG/ML (20 ML MDV) ONE (11:06)
[2023-08-10] MEDS ORDERED: GLYCOPYRROLATE 0.2 MG/ML 2 ML VIAL ONE (11:06)
[2023-08-10] MEDS ORDERED: PROPOFOL 10 MG/ML 20 ML VIAL IV ONE (11:06)
[2023-08-10] MEDS ORDERED: fentaNYL (PF) 50 MCG/ML 2 ML AMP ONE (11:06)
[2023-08-10] MEDS ORDERED: SUCCINYLCHOLINE CHLORIDE 200 MG/10 ML VIAL IV ONE (11:06)
[2023-08-10] MEDS ORDERED: KETOROLAC 15 MG/ML 1 ML VIAL ONE (11:06)
[2023-08-10] MEDS ORDERED: NEOSTIGMINE 1 MG/ML 10 ML VIAL ONE (11:06)
[2023-08-10] MEDS ORDERED: ROCURONIUM 10 MG/ML (5 ML VIAL) IV ONE (11:06)
[2023-08-10] MEDS ORDERED: IOPAMIDOL-370 100ML BTL MISCELLANE ONE ×2 (11:47)
--- NOTE | 2023-08-10 12:16 | P.OP ---
Date of Procedure: 08/10/23 Preoperative Diagnosis: Bilateral ureteral calculi Postoperative Diagnosis: Same Procedure(s) Performed: Cystoscopy, left retrograde pyelogram, left ureteroscopy with laser lithotripsy, right ureteroscopy with laser lithotripsy and stone basketing Anesthesia: YESENIA Surgeon: Simeon Akhtar Estimated Blood Loss (ml): 0 Pathology: other (Stone) Condition: stable Disposition: PACU Indications for Procedure: Patient is 37. She presented to the emergency room with bilateral flank pain was found to have bilateral ureteral stones. She came office yesterday and symptomatically it sounded as if her stone on the left side was in the distal ureter and the right side was in the proximal ureter. KUB was difficult to assess is a stone was not well seen. Because of pain she comes for bilateral ureteroscopy Description of Procedure: Patient brought to the operating suite. Given general anesthesia. Placed lithotomy position with sterile prep and drape. Cystoscopy Foroblique lens and 21-[place] sheath identifies a normal urethra. The bladder guardado unremarkable. Both ureteral orifices are identified. Left retrograde pyelogram performed the ureter is of normal course and caliber up in the proximal ureter with a 4 mm stone was identified. I then pass an 035 wire up the ureter. Over the wires passed 1113-[place] sheath. The inner sheath is removed. I passed the flexible ureteroscope up to the stone migrated back into the kidney. I passed the f lexible scope into the kidney and with the 272 probe the stone was broken into tiny pieces to be flushed out. I then look at the right side on fluoroscopy and I see the stone in the proximal ureter as it is much larger probably 9 mm. I then pass a wire up the right ureteral orifice into the kidney. Over the wires passed 11/13-[place] sheath. The inner sheath is removed. I passed the flexible ureteroscope up to the proximal ureter there is a very large stone impacted in the ureter. With the same's 272 laser probe the stone was broken into tiny fragments and falls back into the kidney. I basket the largest fragments up. Up in the procedure the no significant fragments. I do pullout ureteroscopy and there is no stones. I also did pullout ureteroscopy in the left side there were no stones. At the end of the procedure the bladder strain the patient is awake and returned recovery in good condition. She tolerated procedure well. Blood loss is minimal. She'll be discharged home upon recovery and found the office in one week.
--- NOTE | 2023-08-10 12:27 | FL ---
EXAMINATION TYPE: FL urography retrograde DATE OF EXAM: 08/10/2023 COMPARISON: NONE HISTORY: BILATERAL URETERAL STONE N20.1 TECHNIQUE: Fluoroscopy. FINDINGS: [place] [facility] CALCULI RIGTH SIDE RETRO CYSTO WITH STONE LASER AND REMOVE. LEFT SIDE WITH LITHO AND STONE REMOVAL. FL TIME 22.8 SECS DAP [id number] IMPRESSION: As Above.
[2023-08-10] MEDS: oxyBUTYnin chloride 5 MG TAB PO STA ×2 (12:44→13:10)
[2023-08-10] MEDS ORDERED: IV FLUID CONTINUATION 1,000 ML IV ONE (13:01)
[2023-08-10] MEDS ORDERED: ACETAMINOPHEN TAB 500 MG TAB ONE (13:07)
[2023-08-10] MEDS ORDERED: HYDROmorphone 0.5 MG/0.5 ML SYRINGE IVP ONE ×4 (13:10→14:33)
[2023-08-10] MEDS ORDERED: ACETAMINOPHEN TAB 500 MG TAB PO ONE (13:10)
[2023-08-10 15:44] VITALS: BP 153/80; PULSE 64; RESP 18
== END 2023-08-10 15:58 | disposition home or self-care (01) ==
LOC: OR 08:38
PROVIDERS: ATTEND Urology
DX: N20.1 Calculus of ureter (principal); F17.210 Nicotine dependence, cigarettes, uncomplicated; Z90.49 Acquired absence of other specified parts of digestive tract; Z98.891 History of uterine scar from previous surgery; Z90.721 Acquired absence of ovaries, unilateral; Z79.890 Hormone replacement therapy; Z88.0 Allergy status to penicillin; Z79.899 Other long term (current) drug therapy
CPT/HCPCS: 81025; 82365; 74420; 74018; 52353; C1758; C1769; J2250; J0330; J1100; J2710; J0690; J2405; J2001; J3010; J1580; J1885; J2704; J1170; Q9967

== ENCOUNTER 2024-02-24 08:18 | Emergency (ER) | payer OTHER ==
[2024-02-24 09:06] VITALS: TEMP 98.4
--- NOTE | 2024-02-24 09:07 | ED ---
General Adult HPI - General Chief complaint: Abdominal Pain Stated complaint: kidney stone Time Seen by Provider: 02/24/24 08:25 Source: patient Mode of arrival: ambulatory Limitations: no limitations - History of Present Illness Initial comments: Dictation was produced using [employer] dictation software. please excuse any grammatical, word or spelling errors. Chief Complaint: 38-year-old female presents emergency department for kidney stones History of Present Illness: Patient 38-year-old female she has extensive medical history of kidney stones. For the last several days she has been dealing with bilateral flank pain. Patient states that over the last 24 hours her symptoms significantly worsen with bilateral flank pain. States that her symptoms are consistent with her usual kidney stone pain. She had some leftover Toradol. She became desperate and took 1 Toradol for some relief. She is allegedly 21 weeks . She had a anatomy scan done states that she is having a boy. Denies any blood in her urine. Denies any vaginal discharge or vaginal bleeding. The ROS documented in this emergency department record has been reviewed and confirmed by me. Those systems with pertinent positive or negative responses have been documented in the HPI. All other systems are other negative and/or noncontributory. - Related Data Home Medications Medication Instructions Recorded Confirmed Levothyroxine Sodium [Synthroid] 125 mcg PO DAILY 07/28/23 08/10/23 Previous Rx's Medication Instructions Recorded Doxylamine Succinate/Vit B6 1 tab PO TID PRN #24 tab 02/24/24 [Diclegis Dr 10-10 mg Tablet] Phenazopyridine [Pyridium] 100 mg PO TID 2 Days #6 tablet 02/24/24 Allergies Allergy/AdvReac Type Severity Reaction Status Date / Time Penicillins Allergy Severe Swelling Verified 02/24/24 08:30 corn [[place]] Allergy Mild Itching Verified 02/24/24 08:30 peanut Allergy Mild Itching Verified 02/24/24 08:30 soybean Allergy Mild Itching Verified 02/24/24 08:30 walnut Allergy Itching Verified 02/24/24 08:30 scopolamine AdvReac issues Verified 02/24/24 08:30 urinating post op until removed. Review of Systems ROS Statement: Those systems with pertinent positive or pertinent negative responses have been documented in the HPI. ROS Other: All systems not noted in ROS Statement are negative. Past Medical History Past Medical History: Thyroid Disorder Additional Past Medical History / Comment(s): kidney stones History of Any Multi-Drug Resistant Organisms: None Reported Past Surgical History: Appendectomy, Section, Tonsillectomy Additional Past Surgical History / Comment(s): exploratory laparotomy for removal of ovary, release of plantar fasciitis, lithotripsy Past Anesthesia/Blood Transfusion Reactions: No Reported Reaction Additional Past Anesthesia/Blood Transfusion Reaction / Comment(s): hard to wake up Past Psychological History: No Psychological Hx Reported Smoking Status: Current every day smoker Past Alcohol Use History: None Reported Past Drug Use History: Marijuana - Past Family History Mother Family Medical History: No Reported History General Exam - General Exam Comments Initial Comments: PHYSICAL EXAM: General Impression: Alert and oriented x3, acute distress secondary pain HEENT: Normocephalic atraumatic, extra-ocular movements intact, pupils equal and reactive to light bilaterally, mucous membranes moist. Cardiovascular: Heart regular rate and rhythm Chest: Able to complete full sentences, no retractions, no tachypnea Abdomen: abdomen soft, non-tender, non-distended, no organomegaly Musculoskeletal: Pulses present and equal in all extremities, no peripheral edema Motor: no focal deficits noted Neurological: CN II-XII grossly intact, no focal motor or sensory deficits noted Skin: Intact with no visualized rashes Psych: tearful Limitations: no limitations Course Vital Signs 02/24/24 02/24/24 02/24/24 08:28 09:54 10:47 Temperature 98.4 F Pulse Rate 116 H 82 96 Respiratory 20 18 20 Rate Blood Pressure 132/84 131/76 108/65 O2 Sat by Pulse 97 96 96 Oximetry Medical Decision Making - Medical Decision Making Was pt. sent in by a medical professional or institution (, PA, SMALL BUSINESS REPRESENTATIVE, urgent care, hospital, or jail...) When possible be specific @ -No Did you speak to anyone other than the patient for history (EMS, parent, family, police, friend...)? What history was obtained from this source @ -No Did you review nursing and triage notes (agree or disagree)? Why? @ -I reviewed and agree with nursing and triage notes Were old charts reviewed (outside hosp., previous admission, EMS record, old EKG, old radiological studies, urgent care reports/EKG's, jail records)? Report findings @ -No old charts were reviewed Differential Diagnosis (chest pain, altered mental status, abdominal pain women, abdominal pain men, vaginal bleeding, musculoskeletal, weakness, fever, dys pnea, syncope, headache, dizziness, GI bleed, back pain, seizure, CVA, palpatations, mental health)? @ -Differential Abdominal Pain Women: Appendicitis, Cholecystitis, diverticulosis, ischemic bowel, pancreatitis, hepatitis, UTI, gastroenteritis, AAA, incarcerated hernia, bowel obstruction, constipation, inflammatory bowel, hepatitis, peptic ulcer disease, splenic infarction, perforated viscus, vulvitis, ovarian torsion, PID, kidney stone, placenta abruption, this is not meant to be an all-inclusive list EKG interpreted by me (3pts min.). @ -None done X-rays interpreted by me (1pt min.). @ -None done CT interpreted by me (1pt min.). @ -None done U/S interpreted by me (1pt. min.). @ -Ultrasound of the kidneys urinary bladder did not show hydronephrosis. Ultrasound OB shows intrauterine with no complicating processes. There is a fibroid versus [place] What testing was considered but not performed or refused? (CT, X-rays, U/S, labs)? Why? @ -None What meds were considered but not given or refused? Why? @ -None Did you discuss the management of the patient with other professionals (professionals i.e. , PA, SMALL BUSINESS REPRESENTATIVE, lab, RT, psych nurse, hospital social worker, bus greaser, t eacher, campus safety officer, rn case manager hospice)? Give summary @ -No Was smoking cessation discussed for >3mins.? @ -No Was critical care preformed (if so, how long)? @ -No Were there social determinants of health that impacted care today? How? (Homelessness, low income, unemployed, alcoholism, drug addiction, transportation, low edu. Level, literacy, decrease access to med. care, half-way, rehab)? @ -No Was there de-escalation of care discussed even if they declined (Discuss DNR or withdrawal of care, Hospice)? DNR status @ -No What co-morbidities impacted this encounter? (DM, HTN, Smoking, COPD, CAD, Cancer, CVA, ARF, Chemo, Hep., AIDS, mental health diagnosis, sleep apnea, morbid obesity)? @ -None Was patient admitted / discharged? Hospital course, mention meds given and route, prescriptions, significant lab abnormalities, going to OR and other pertinent info. @ -30-year-old female presents emergency department for bilateral flank pain. She has extensive kidney stone history. Vital signs upon arrival are within acceptable limits. Laboratory evaluation obtained. Leukocytosis of 18.2 likely secondary to stress. Metabolic panel within acceptable limits. Urinalysis shows 95 red blood cells. Ultrasound does not show any signs of obstruction. ultrasound is unremarkable. Patient given symptomatic treatment. Patient be discharged. Advised follow-up with LICENSED MASSAGE PRACTITIONER Undiagnosed new problem with uncertain prognosis? @ -No Drug Therapy requiring intensive monitoring for toxicity (Heparin, Nitro, Insulin, Cardizem)? @ -No Were any procedures done? @ -No Diagnosis/symptom? Acute, or Chronic, or Acute on Chronic? Uncomplicated (without systemic symptoms) or Complicated (systemic symptoms)? @ -Kidney stone Side effects of treatment? @ -No Exacerbation, Progression, or Severe Exacerbation? @ -No Poses a threat to life or bodily function? How? (Chest pain, [place], [place], pneumonia, PE, COPD, DKA, ARF, appy, cholecystitis, CVA, Diverticulitis, Homicidal, Suicidal, threat to staff... and all critical care pts) @ -No - Lab Data Result diagrams: 02/24/24 08:18 02/24/24 08:18 Lab Results 02/24/24 02/24/24 02/24/24 Range/Units 08:18 08:18 08:18 WBC 18.2 H (3.8-10.6) k/uL RBC 4.31 (3.80-5.40) m/uL Hgb 12.9 (11.4-16.0) gm/dL Hct 37.7 (34.0-46.0) % MCV 87.5 (80.0-100.0) fL MCH 29.9 (25.0-35.0) pg MCHC 34.2 (31.0-37.0) g/dL RDW 13.6 (11.5-15.5) % Plt Count 217 (150-450) k/uL MPV 9.5 Neutrophils % 85 % Lymphocytes % 10 % Monocytes % 3 % Eosinophils % 1 % Basophils % 0 % Neutrophils # 15.4 H (1.3-7.7) k/uL Lymphocytes # 1.8 (1.0-4.8) k/uL Monocytes # 0.6 (0-1.0) k/uL Eosinophils # 0.1 (0-0.7) k/uL Basophils # 0.0 (0-0.2) k/uL Sodium 134 L (137-145) mmol/L Potassium 4.3 (3.5-5.1) mmol/L Chloride 105 (98-107) mmol/L Carbon Dioxide 22 (22-30) mmol/L Anion Gap 7 mmol/L BUN 12 (7-17) mg/dL Creatinine 0.53 (0.52-1.04) mg/dL Est GFR (CKD-EPI)AfAm >90 (>60 ml/min/1.73 sqM) Est GFR (CKD-EPI)NonAf >90 (>60 ml/min/1.73 sqM) Glucose 125 H (74-99) mg/dL Calcium 9.6 (8.4-10.2) mg/dL Urine Color Yellow Urine Appearance Clear (Clear) Urine pH 5.5 (5.0-8.0) Ur Specific [place] 1.022 (1.001-1.035) Urine Protein Trace H (Negative) Urine Glucose (UA) Negative (Negative) Urine Ketones 3+ H (Negative) Urine Blood Moderate H (Negative) Urine Nitrite Negative (Negative) Urine Bilirubin Negative (Negative) Urine Urobilinogen <2.0 (<2.0) mg/dL Ur Leukocyte Esterase Negative (Negative) Urine RBC 95 H (0-5) /hpf Urine WBC 6 H (0-5) /hpf Ur Squamous Epith Cells 4 (0-4) /hpf Urine Mucus Occasional H (None) /hpf Disposition Clinical Impression: Kidney stone Disposition: HOME SELF-CARE Condition: Fair Instructions (If sedation given, give patient instructions): Kidney Stones (ED) Prescriptions: Doxylamine Succinate/Vit B6 [Diclegis Dr 10-10 mg Tablet] 1 tab PO TID PRN #24 tab PRN Reason: Nausea Phenazopyridine [Pyridium] 100 mg PO TID 2 Days #6 tablet Is patient prescribed a controlled substance at d/c from ED?: No Referrals: None,Stated [Primary Care Provider] - 1-2 days Time of Disposition: 11:23
[2024-02-24 09:17] LABS: Basophils % (A) 0 %; Eosinophils # (A) 0.1 k/uL (0-0.7); Eosinophils % (A) 1 %; HCT 37.7 % (34.0-46.0); HGB 12.9 gm/dL (11.4-16.0); Lymphocytes # (A) 1.8 k/uL (1.0-4.8); Lymphocytes % (A) 10 %; MCH 29.9 pg (25.0-35.0); MCHC 34.2 g/dL (31.0-37.0); MCV 87.5 fL (80.0-100.0); Mean Platelet Volume 9.5; Monocytes # (A) 0.6 k/uL (0-1.0); Monocytes % (A) 3 %; Neutrophils # (A) 15.4 k/uL (1.3-7.7); Neutrophils % (A) 85 %; Platelet Count 217 k/uL (150-450); RBC 4.31 m/uL (3.80-5.40); RDW 13.6 % (11.5-15.5); WBC 18.2 k/uL (3.8-10.6)
[2024-02-24 09:23] LABS: Appearance,Urine Clear (Clear); Bilirubin,Urine Negative (Negative); Blood,Urine Moderate (Negative); Color,Urine Yellow; Glucose,Urine (UA) Negative (Negative); Ketones,Urine 3+ (Negative); Leukocyte Esterase,Urine Negative (Negative); Mucus,Urine Occasional /hpf; Nitrite,Urine Negative (Negative); PH, Urine 5.5 (5.0-8.0); Protein,Urine Trace (Negative); RBC,Urine 95 /hpf (0-5); Specific Gravity,Urine 1.022 (1.001-1.035); Squamous Epithelial Cell,Urine 4 /hpf (0-4); Urobilinogen,Urine <2.0 mg/dL (<2.0); WBC,Urine 6 /hpf (0-5)
--- NOTE | 2024-02-24 09:35 | US ---
EXAMINATION TYPE: US kidneys/renal and bladder DATE OF EXAM: 02/24/2024 COMPARISON: CT 07/28/2023 CLINICAL INDICATION: Female, 38 years old with history of flank pain; Hx Multiple stones with lithotr ipsy; Urinary urgency without void, and vomiting. EXAM MEASUREMENTS: Right Kidney: 12.7 x 5.5 x 5.3 cm Left Kidney: 12.8 x 6.5 x 6.2 cm Post Void Residual Volume: NA mL Right Kidney: Scattered punctate echogenic foci measuring up to 4 mm. No hydronephrosis. Left Kidney: Scattered punctate echogenic foci measuring up to 4 mm. No hydronephrosis. Bladder: Not fully distended Bilateral Jets seen: Limited assessment due to bladder not being filled Normal Post Void Residual: NA IMPRESSION: No hydronephrosis. Some scattered punctate echogenic foci likely representing small nonobstructive st ones in the kidneys.
[2024-02-24] MEDS: SODIUM CHLORIDE 0.9% 1,000 ML IV STA (09:52)
[2024-02-24] MEDS: METOCLOPRAMIDE 5 MG/ML 2 ML VIAL IVP STA (09:52)
[2024-02-24] MEDS: MORPHINE SULFATE 2 MG/ML SYRINGE IV STA (09:53)
[2024-02-24 09:56] LABS: African American GFR (CKD) >90 (>60 ml/min/1.73 sqM); Anion Gap 7 mmol/L; Blood Urea Nitrogen 12 mg/dL (7-17); Calcium 9.6 mg/dL (8.4-10.2); Carbon Dioxide 22 mmol/L (22-30); Chloride 105 mmol/L (98-107); Glucose 125 mg/dL (74-99); Non-African American GFR(CKD) >90 (>60 ml/min/1.73 sqM); Potassium 4.3 mmol/L (3.5-5.1); Sodium 134 mmol/L (137-145)
--- NOTE | 2024-02-24 10:02 | US ---
EXAMINATION TYPE: US OB >= 14 wk fetus DATE OF EXAM: 02/24/2024 COMPARISON: None CLINICAL INDICATION: Female, 38 years old with history of suprapubic pain; Hx multiple kidney stones; Flank pain; Anatomy exam normal per patient; High protein in urine; TECHNIQUE: Transabdominal (TA) GESTATIONAL AGE / DATING Physician Established: (21 weeks/4 days) EDC: 06/24/2024 Dates by LMP: Nonreported Dates by First Scan: This is first scan here Dates by Current Scan: (21 weeks/5 days) EDC: 07/01/2024 SURVEY IUP: Single PLACENTA: Anterior PREVIA: No Previa ROHINI: 13.0 cm Normal CERVICAL LENGTH (transabdominal: norm > 3.0cm): 3.9 cm BIOMETRY PRESENTATION: Vertex LIE: Longitudinal BPD: 5.28 cm 22 weeks / 1 days HC: 19.6 cm 21 weeks / 6 days AC: 16.2 cm 21 weeks / 2 days FL: 3.55 cm 21 weeks / 2 days ESTIMATED WEIGHT IN GRAMS: 416 grams ESTIMATED WEIGHT IN LBS/OZ: 0 lbs. 15 oz. WEIGHT PERCENTAGE BASED ON ESTABLISHED DATES: 32% HC/AC: 1.21 Normal FL/AC: 22% Normal HEART RATE: 160 bpm RHYTHM: Normal Lubrication Equipment Servicer notes: ? contraction vs other etiology anterior uterine wall at lower end of placenta = 4.8 x 3.4 x 5.6 cm; Seen through out entirety of exam without resolve IMPRESSION: 1. Single live intrauterine with established gestational age of 21 weeks 4 days. Current ul trasound biometry concordant at 21 weeks 5 days[address] the child at the 32nd percentile for weight. 2. There is a rounded area in the uterus measuring 5.6 cm located deep to the placenta along the ante rior lower uterine segment. Either a focal fibroid versus a [place] Spe[place] contraction are favored. Th e appearance does not favor a hemorrhage. Reassess at follow-up. 3. Note that the anatomy was not assessed on this emergent study.
[2024-02-24 11:01] VITALS: BP 108/65; PULSE 96; RESP 20
== END 2024-02-24 11:39 | disposition home or self-care (01) ==
LOC: EC 08:18
DX: O99.891 Other specified diseases and conditions complicating pregnancy (principal); N20.0 Calculus of kidney; O99.332 Smoking (tobacco) complicating pregnancy, second trimester; F17.200 Nicotine dependence, unspecified, uncomplicated; O99.322 Drug use complicating pregnancy, second trimester; F12.90 Cannabis use, unspecified, uncomplicated; Z88.0 Allergy status to penicillin; Z91.010 Allergy to peanuts; Z91.018 Allergy to other foods; Z3A.21 21 weeks gestation of pregnancy
CPT/HCPCS: 36415; 80048; 85025; 81001; 76805; 76770; 99284; 96374; 96375; 96361; J2765; J2270